=== PATIENT | male | born 1930 | race Caucasian/White ===

== ENCOUNTER → 2016-03-25 | Outpatient (CLI) | payer MEDICARE ==
[~2016-03-25] MED LIST: 8 HOUR PAIN RE650 M1 PO; ADVAIR DISKUS1 DS2 IH; ALLER-FLO15.8 ML NS; AQUAPHOR BABY HEA41% TOP; ASPIRIN E.C. 8181 MG PO; AVEENO BATH1 EACH TP; BENADRYL ALLERG25 M2 PO; CEFDINIR300 MG PO; CELEXA 20MG20 MG/TA1 PO; CELEXA10 MG PO; CEPHALEXIN500 M1 PO; CERAVE453 GM TP; CETIRIZINE5 MG PO; CIPRO250 M1 PO; CLOBETASOL EMOL50 GM TOP; COLACE100 M1 PO; DULCOLAX10 M1 RC; FLEET ENEM1 BOT/133 RC; GLIPIZIDE XL2.5 MG PO; GLUCOPHAGE; GOOD NEIGH1200 MG/15 PO; GOOD NEIGHBOR P20 MG PO; IPRATROPIUM BROM3 M1 IH; LASIX40 M1 PO; METRONIDAZOLE500 M1 PO; MIRALAX17 GM PO; MOMETASONE0.05 MG/Ac NS; NEURONTIN300 M1 PO; NORCO 325 MG-51 TA1 PO; OXY NAS; PEG 335017 GM/Dose PO; PREPARATION H 01 OIN TP; ROCEPHIN VIA1 G/VIAL; TESSALON PERLE100 M1 PO; TRIAMCINOLONE A15 G1 TP; ZITHROMAX500 M2 PO; ZYRTEC ALLERGY10 MG PO
== END ==
LOC: LAB 05:10
DX: D64.9 Anemia, unspecified (principal); E11.9 Type 2 diabetes mellitus without complications; I10 Essential (primary) hypertension

== ENCOUNTER → 2016-03-30 | Outpatient (CLI) | payer MEDICARE | LOC: LAB 15:12 | DX: N39.0 Urinary tract infection, site not specified (principal) ==

== ENCOUNTER → 2016-04-17 | Outpatient (CLI) | payer MEDICARE | LOC: LAB 06:15 | DX: E11.9 Type 2 diabetes mellitus without complications (principal); I10 Essential (primary) hypertension ==

== ENCOUNTER → 2016-07-16 | Outpatient (CLI) | payer MEDICARE ==
[2015-12-15 12:53] VITALS: BP 134/80
== END ==
LOC: LAB 05:25
DX: E11.9 Type 2 diabetes mellitus without complications (principal)

== ENCOUNTER → 2016-09-22 | Outpatient (CLI) | payer MEDICARE ==
[2015-12-15 12:53] VITALS: BP 134/80
== END ==
LOC: LAB 06:20
DX: E11.9 Type 2 diabetes mellitus without complications (principal)

== ENCOUNTER 2016-10-05 14:48 | Emergency (ER) | payer MEDICARE, OTHER ==
[~2016-10-05 14:48] MED LIST changes: -ALLER-FLO15.8 ML NS; -AQUAPHOR BABY HEA41% TOP; -AVEENO BATH1 EACH TP; -CEFDINIR300 MG PO; -CELEXA 20MG20 MG/TA1 PO; -CIPRO250 M1 PO; -CLOBETASOL EMOL50 GM TOP; -IPRATROPIUM BROM3 M1 IH; -OXY NAS; -PEG 335017 GM/Dose PO; -ROCEPHIN VIA1 G/VIAL; -TESSALON PERLE100 M1 PO; -ZITHROMAX500 M2 PO
[2016-10-05] MEDS ORDERED: CELEXA 20MG20 MG/TA1 PO (16:31)
[2016-10-05] MEDS ORDERED: ALLER-FLO15.8 ML NS (16:33)
[2016-10-05] MEDS ORDERED: LASIX40 M1 PO (16:34)
[2016-10-05] MEDS ORDERED: MIRALAX17 GM PO (16:35)
[2016-10-05] MEDS ORDERED: NEURONTIN300 M1 PO (16:35)
[2016-10-05] MEDS ORDERED: TESSALON PERLE100 M1 PO (16:36)
[2016-10-05 17:56] VITALS: BP 114/66
[2016-10-05] MEDS ORDERED: CIPRO250 M1 PO (18:44)
== END 2016-10-05 17:35 | disposition home or self-care (01) ==
LOC: ED 14:48
DX: S09.90XA Unspecified injury of head, initial encounter (principal); S70.02XA Contusion of left hip, initial encounter; S40.012A Contusion of left shoulder, initial encounter; S00.83XA Contusion of other part of head, initial encounter; S41.111A Laceration without foreign body of right upper arm, initial encounter; W18.2XXA Fall in (into) shower or empty bathtub, initial encounter; Y92.121 Bathroom in nursing home as the place of occurrence of the external cause; F03.90 Unspecified dementia, unspecified severity, without behavioral disturbance, psychotic disturbance, mood disturbance, and anxiety; N39.0 Urinary tract infection, site not specified
CPT/HCPCS: A4340; J3010

== ENCOUNTER → 2016-10-08 | Outpatient (CLI) | payer MEDICARE, MEDICAID ==
[2016-10-05 17:56] VITALS: BP 114/66
[~2016-10-08] MED LIST changes: +ALLER-FLO15.8 ML NS; +AQUAPHOR BABY HEA41% TOP; +AVEENO BATH1 EACH TP; +CEFDINIR300 MG PO; +CELEXA 20MG20 MG/TA1 PO; +CIPRO250 M1 PO; +CLOBETASOL EMOL50 GM TOP; +IPRATROPIUM BROM3 M1 IH; +OXY NAS; +PEG 335017 GM/Dose PO; +ROCEPHIN VIA1 G/VIAL; +TESSALON PERLE100 M1 PO; +ZITHROMAX500 M2 PO
== END ==
LOC: RAD 09:18
DX: R06.02 Shortness of breath (principal); J18.9 Pneumonia, unspecified organism

== ENCOUNTER → 2016-10-09 | Outpatient (CLI) | payer MEDICARE, OTHER ==
[2016-10-05 17:56] VITALS: BP 114/66
== END ==
LOC: LAB 06:50
DX: J18.9 Pneumonia, unspecified organism (principal); N39.0 Urinary tract infection, site not specified

== ENCOUNTER 2016-10-10 08:56 | Emergency (ER) | payer MEDICARE, OTHER ==
[~2016-10-10] VITALS: Wt 77.4 kg
[~2016-10-10 08:56] MED LIST changes: -AQUAPHOR BABY HEA41% TOP; -AVEENO BATH1 EACH TP; -CEFDINIR300 MG PO; -CLOBETASOL EMOL50 GM TOP; -IPRATROPIUM BROM3 M1 IH; -OXY NAS; -PEG 335017 GM/Dose PO; -ROCEPHIN VIA1 G/VIAL; -ZITHROMAX500 M2 PO
[2016-10-10] MEDS ORDERED: OXY NAS ×2 (12:17→12:18)
[2016-10-10] MEDS ORDERED: AQUAPHOR BABY HEA41% TOP (12:20)
[2016-10-10] MEDS ORDERED: AVEENO BATH1 EACH TP (12:21)
[2016-10-10] MEDS ORDERED: CLOBETASOL EMOL50 GM TOP (12:25)
[2016-10-10] MEDS ORDERED: IPRATROPIUM BROM3 M1 IH (12:26)
[2016-10-10] MEDS ORDERED: MOMETASONE0.05 MG/Ac NS (12:29)
[2016-10-10] MEDS ORDERED: ZITHROMAX500 M2 PO (12:31)
[2016-10-10] MEDS ORDERED: ROCEPHIN VIA1 G/VIAL (12:31)
[2016-10-10] MEDS ORDERED: TESSALON PERLE100 M1 PO (12:31)
[2016-10-10 14:30] VITALS: BP 124/64
== END 2016-10-10 14:46 | disposition other institution (70) ==
LOC: ED 08:56
DX: J18.9 Pneumonia, unspecified organism (principal); S22.41XA Multiple fractures of ribs, right side, initial encounter for closed fracture; R62.7 Adult failure to thrive; R09.02 Hypoxemia; D64.9 Anemia, unspecified; W19.XXXA Unspecified fall, initial encounter; Y92.129 Unspecified place in nursing home as the place of occurrence of the external cause; I25.10 Atherosclerotic heart disease of native coronary artery without angina pectoris; I10 Essential (primary) hypertension; E11.9 Type 2 diabetes mellitus without complications; Z79.84 Long term (current) use of oral hypoglycemic drugs; J44.9 Chronic obstructive pulmonary disease, unspecified; Z86.73 Personal history of transient ischemic attack (TIA), and cerebral infarction without residual deficits; G20 Parkinson's disease; F02.80 Dementia in other diseases classified elsewhere, unspecified severity, without behavioral disturbance, psychotic disturbance, mood disturbance, and anxiety; Z99.81 Dependence on supplemental oxygen; Z66 Do not resuscitate
CPT/HCPCS: A4340; A4354; Q9967

== ENCOUNTER 2016-10-10 14:29 | Inpatient (IN) | payer MEDICARE, MEDICAID ==
[~2016-10-10] VITALS: Ht 172.7 cm; Wt 75.7 kg
[~2016-10-10 14:29] MED LIST changes: +AQUAPHOR BABY HEA41% TOP; +AVEENO BATH1 EACH TP; +CLOBETASOL EMOL50 GM TOP; +IPRATROPIUM BROM3 M1 IH; +OXY NAS; +ROCEPHIN VIA1 G/VIAL; +ZITHROMAX500 M2 PO
[2016-10-10 14:45] VITALS: BP 124/64
[2016-10-10 18:27] VITALS: BP 127/58
[2016-10-10 23:29] VITALS: BP 142/81
[2016-10-11 03:26] VITALS: BP 116/57
[2016-10-11 06:19] VITALS: BP 132/79
[2016-10-11 11:02] VITALS: BP 124/63
[2016-10-11 15:18] VITALS: BP 107/55
[2016-10-11 18:29] VITALS: BP 106/52
[2016-10-11 23:20] VITALS: BP 111/56
[2016-10-12 03:02] VITALS: BP 134/70
[2016-10-12 06:37] VITALS: BP 124/61
[2016-10-12 10:59] VITALS: BP 132/58
[2016-10-12 15:16] VITALS: BP 141/66
[2016-10-12 18:03] VITALS: BP 164/78
[2016-10-12 23:08] VITALS: BP 140/76
[2016-10-13 03:25] VITALS: BP 134/67
[2016-10-13 06:24] VITALS: BP 134/66
[2016-10-13 11:11] VITALS: BP 123/58
[2016-10-13 15:24] VITALS: BP 142/73
[2016-10-13 18:24] VITALS: BP 140/69
[2016-10-13 23:25] VITALS: BP 167/95
[2016-10-14 02:52] VITALS: BP 143/76
[2016-10-14 06:46] VITALS: BP 141/75
[2016-10-14 11:21] VITALS: BP 122/59
[2016-10-14 15:00] VITALS: BP 124/58
[2016-10-14 18:23] VITALS: BP 137/74
[2016-10-14 23:15] VITALS: BP 115/68
[2016-10-15 02:42] VITALS: BP 125/58
[2016-10-15 06:28] VITALS: BP 124/61
[2016-10-15] MEDS ORDERED: IPRATROPIUM BROM3 M1 IH (09:05)
[2016-10-15] MEDS ORDERED: PEG 335017 GM/Dose PO (09:07)
[2016-10-15] MEDS ORDERED: CEFDINIR300 MG PO (09:13)
[2016-10-15 10:49] VITALS: BP 162/80
[2016-10-15 11:09] VITALS: BP 162/80
== END 2016-10-15 10:59 | DRG 194 ==
LOC: MED/SURG 14:29
PROVIDERS: ADMIT Physician Assistant
DX: J18.9 Pneumonia, unspecified organism (principal); S22.41XA Multiple fractures of ribs, right side, initial encounter for closed fracture; F03.90 Unspecified dementia, unspecified severity, without behavioral disturbance, psychotic disturbance, mood disturbance, and anxiety; J44.9 Chronic obstructive pulmonary disease, unspecified; K21.9 Gastro-esophageal reflux disease without esophagitis; Z66 Do not resuscitate; R53.81 Other malaise; E11.9 Type 2 diabetes mellitus without complications; I10 Essential (primary) hypertension; R62.7 Adult failure to thrive; R09.02 Hypoxemia; D64.9 Anemia, unspecified; Z86.73 Personal history of transient ischemic attack (TIA), and cerebral infarction without residual deficits
CPT/HCPCS: J0456; J0696; J1885; J7030; J7050

== ENCOUNTER → 2016-10-10 | Outpatient (CLI) | payer MEDICARE ==
[2016-10-05 17:56] VITALS: BP 114/66
== END ==
LOC: LAB 06:30
DX: J18.9 Pneumonia, unspecified organism (principal)

== ENCOUNTER → 2016-11-11 | Outpatient (CLI) | payer MEDICARE ==
[2016-10-15 11:09] VITALS: BP 162/80
[~2016-11-11] MED LIST changes: +CEFDINIR300 MG PO; +PEG 335017 GM/Dose PO
== END ==
LOC: LAB 20:32
DX: J18.9 Pneumonia, unspecified organism (principal)

== ENCOUNTER → 2016-12-10 | Outpatient (CLI) | payer MEDICARE | LOC: RAD 11:10 | DX: J44.9 Chronic obstructive pulmonary disease, unspecified (principal) ==

== ENCOUNTER → 2016-12-24 | Outpatient (CLI) | payer MEDICARE | LOC: LAB 05:55 | DX: E11.9 Type 2 diabetes mellitus without complications (principal) ==

== ENCOUNTER → 2017-01-15 | Outpatient (CLI) | payer MEDICARE, MEDICAID ==
[2017-01-15 06:23] LABS: HEMOGLOBIN 13.5 g/dL (13.5-18.0); MEAN PLATELET VOLUME 9.7 fl (7.4-10.4); RED BLOOD COUNT 4.63 M/mm3 (4.20-5.60); RED CELL DISTRIBUTION WIDTH 14.2 % (11.5-14.5); WHITE BLOOD COUNT 9.8 K/mm3 (4.8-10.8)
[2017-01-15 06:24] LABS: ALBUMIN 3.3 g/dL (3.5-5.0); BUN/CREATININE RATIO 18.8 (6.0-26.0); CALCIUM 8.9 mg/dL (8.4-10.2); POTASSIUM 4.4 mmol/L (3.6-5.0); TOTAL BILIRUBIN 0.6 mg/dL (0.2-1.3); TOTAL PROTEIN 6.5 g/dL (6.3-8.2)
== END ==
LOC: LAB 05:53
PROVIDERS: Family Medicine
DX: E11.9 Type 2 diabetes mellitus without complications (principal)

== ENCOUNTER 2017-03-17 17:07 | Emergency (ER) | payer MEDICARE, MEDICAID ==
[~2017-03-17] VITALS: Wt 70.1 kg
[2017-03-17] MEDS ORDERED: ALBUTEROL1.25 MG/3 IH (17:42)
[2017-03-17] MEDS ORDERED: ALLEGRA ALLERG180 MG PO (17:43)
[2017-03-17] MEDS ORDERED: AQUAPHOR BABY HEA41% TP (17:45)
[2017-03-17] MEDS ORDERED: BENADRYL EXTRA STR2% TP (17:46)
[2017-03-17] MEDS ORDERED: CLOBETASOL OINT TOP (17:47)
[2017-03-17] MEDS ORDERED: IPRATROPIUM BROM3 M1 IH (17:49)
[2017-03-17] MEDS ORDERED: ELIDEL30 GM TP (17:49)
[2017-03-17] MEDS ORDERED: HEARTBURN RELIE10 MG PO (17:50)
[2017-03-17] MEDS ORDERED: FLEET ENEM1 BOT/133 RC (17:51)
[2017-03-17] MEDS ORDERED: FLUTICASONE P15.8 ML NS (17:52)
[2017-03-17] MEDS ORDERED: MUCINEX DM 60 M1 TER PO (17:54)
[2017-03-17] MEDS ORDERED: POTASS CHL20 MEQ/15 PO (17:57)
[2017-03-17] MEDS ORDERED: AQUAPHOR HEALING41% TP (18:00)
[2017-03-17 18:25] LABS: ALBUMIN 3.8 g/dL (3.5-5.0); BUN/CREATININE RATIO 18.4 (6.0-26.0); CALCIUM 9.1 mg/dL (8.4-10.2); POTASSIUM 4.5 mmol/L (3.6-5.0); TOTAL BILIRUBIN 0.5 mg/dL (0.2-1.3); TOTAL PROTEIN 6.8 g/dL (6.3-8.2)
[2017-03-17 18:28] LABS: HEMATOCRIT 39.3 % (42.0-52.0); HEMOGLOBIN 12.9 g/dL (13.5-18.0); MEAN CELL VOLUME 88 fl (78-100); MEAN CORPUSCULAR HEMOGLOBIN 29 pg (27-31); MEAN CORPUSCULAR HGB CONC 33 g/dL (33-37); MEAN PLATELET VOLUME 9.5 fl (7.4-10.4); PLATELET COUNT 301 K/mm3 (130-400); RED BLOOD COUNT 4.47 M/mm3 (4.20-5.60); RED CELL DISTRIBUTION WIDTH 14.8 % (11.5-14.5)
[2017-03-17 18:43] LABS: LYMPHOCYTE 10 % (20-51); MONOCYTE 7 % (3-10); NEUTROPHILS 75 % (42-75)
[2017-03-17 18:48] LABS: D-DIMER 2.06 mg/L FEU (0.15-0.50)
[2017-03-17] MEDS ORDERED: BACTRIM DS TAB1 EACH PO (19:33)
[2017-03-17 19:52] VITALS: BP 142/71
== END 2017-03-17 19:53 ==
LOC: ED 17:07
PROVIDERS: Physician Assistant
DX: L03.115 Cellulitis of right lower limb (principal); E11.9 Type 2 diabetes mellitus without complications; I25.10 Atherosclerotic heart disease of native coronary artery without angina pectoris; J44.9 Chronic obstructive pulmonary disease, unspecified; Z99.81 Dependence on supplemental oxygen; Z86.73 Personal history of transient ischemic attack (TIA), and cerebral infarction without residual deficits; F03.90 Unspecified dementia, unspecified severity, without behavioral disturbance, psychotic disturbance, mood disturbance, and anxiety; Z95.0 Presence of cardiac pacemaker; R21 Rash and other nonspecific skin eruption; S40.812A Abrasion of left upper arm, initial encounter; S40.811A Abrasion of right upper arm, initial encounter; X58.XXXA Exposure to other specified factors, initial encounter; Y92.129 Unspecified place in nursing home as the place of occurrence of the external cause; R79.89 Other specified abnormal findings of blood chemistry; Z79.82 Long term (current) use of aspirin; Z79.84 Long term (current) use of oral hypoglycemic drugs
CPT/HCPCS: J1650

== ENCOUNTER → 2017-03-18 | Outpatient (CLI) | payer MEDICARE, MEDICAID ==
[2017-03-17 19:52] VITALS: BP 142/71
[~2017-03-18] MED LIST changes: +ALBUTEROL1.25 MG/3 IH; +ALLEGRA ALLERG180 MG PO; +AQUAPHOR BABY HEA41% TP; +AQUAPHOR HEALING41% TP; +BACTRIM DS TAB1 EACH PO; +BENADRYL EXTRA STR2% TP; +CLOBETASOL OINT TOP; +ELIDEL30 GM TP; +FLUTICASONE P15.8 ML NS; +HEARTBURN RELIE10 MG PO; +MUCINEX DM 60 M1 TER PO; +POTASS CHL20 MEQ/15 PO
== END ==
LOC: LAB 07:09 → RAD 07:09
DX: M79.89 Other specified soft tissue disorders (principal); R79.89 Other specified abnormal findings of blood chemistry

== ENCOUNTER → 2017-03-19 | Outpatient (CLI) | payer MEDICARE, MEDICAID ==
[2017-03-17 19:52] VITALS: BP 142/71
[2017-03-19 16:06] LABS: HEMATOCRIT 35.6 % (42.0-52.0); HEMOGLOBIN 11.5 g/dL (13.5-18.0); MEAN CELL VOLUME 89 fl (78-100); MEAN CORPUSCULAR HEMOGLOBIN 29 pg (27-31); MEAN CORPUSCULAR HGB CONC 32 g/dL (33-37); MEAN PLATELET VOLUME 9.6 fl (7.4-10.4); PLATELET COUNT 266 K/mm3 (130-400); RED BLOOD COUNT 4.01 M/mm3 (4.20-5.60); RED CELL DISTRIBUTION WIDTH 14.7 % (11.5-14.5); WHITE BLOOD COUNT 9.6 K/mm3 (4.8-10.8)
[2017-03-19 17:20] LABS: ERYTHROCYTE SEDIMENTATION RATE 21 mm/hr (0-20)
[2017-03-19 19:00] LABS: LYMPHOCYTE 9 % (20-51); MONOCYTE 10 % (3-10); NEUTROPHILS 70 % (42-75)
== END ==
LOC: LAB 15:45
PROVIDERS: Family Medicine
DX: S81.801A Unspecified open wound, right lower leg, initial encounter (principal)

== ENCOUNTER → 2017-03-20 | Outpatient (CLI) | payer MEDICARE, MEDICAID ==
[2017-03-17 19:52] VITALS: BP 142/71
[2017-03-20 06:59] LABS: BUN/CREATININE RATIO 21.4 (6.0-26.0); CALCIUM 8.9 mg/dL (8.4-10.2); POTASSIUM 4.7 mmol/L (3.6-5.0)
== END ==
LOC: LAB 06:15
PROVIDERS: Internal Medicine Interventional Cardiology
DX: Z79.899 Other long term (current) drug therapy (principal)

== ENCOUNTER → 2017-03-26 | Outpatient (CLI) | payer MEDICARE, MEDICAID ==
[2017-03-17 19:52] VITALS: BP 142/71
[2017-03-26 15:37] LABS: HEMATOCRIT 34.5 % (42.0-52.0); HEMOGLOBIN 11.2 g/dL (13.5-18.0); MEAN CELL VOLUME 90 fl (78-100); MEAN CORPUSCULAR HEMOGLOBIN 29 pg (27-31); MEAN CORPUSCULAR HGB CONC 33 g/dL (33-37); MEAN PLATELET VOLUME 9.4 fl (7.4-10.4); PLATELET COUNT 313 K/mm3 (130-400); RED BLOOD COUNT 3.85 M/mm3 (4.20-5.60); RED CELL DISTRIBUTION WIDTH 14.9 % (11.5-14.5); WHITE BLOOD COUNT 10.6 K/mm3 (4.8-10.8)
[2017-03-26 16:49] LABS: LYMPHOCYTE 13 % (20-51); MONOCYTE 5 % (3-10); NEUTROPHILS 67 % (42-75)
[2017-03-26 17:24] LABS: ERYTHROCYTE SEDIMENTATION RATE 15 mm/hr (0-20)
== END ==
LOC: LAB 15:16
PROVIDERS: Family Medicine
DX: I87.2 Venous insufficiency (chronic) (peripheral) (principal); L01.00 Impetigo, unspecified

== ENCOUNTER → 2017-04-17 | Outpatient (CLI) | payer MEDICARE, MEDICAID ==
[2017-04-17 07:40] LABS: HEMATOCRIT 37.5 % (42.0-52.0); HEMOGLOBIN 11.9 g/dL (13.5-18.0); MEAN PLATELET VOLUME 10.9 fl (7.4-10.4); RED BLOOD COUNT 4.21 M/mm3 (4.20-5.60); WHITE BLOOD COUNT 8.8 K/mm3 (4.8-10.8)
[2017-04-17 07:52] LABS: ALBUMIN 3.2 g/dL (3.5-5.0); BUN/CREATININE RATIO 14.9 (6.0-26.0); CALCIUM 8.4 mg/dL (8.4-10.2); POTASSIUM 4.1 mmol/L (3.6-5.0); TOTAL BILIRUBIN 0.4 mg/dL (0.2-1.3); TOTAL PROTEIN 6.2 g/dL (6.3-8.2)
== END ==
LOC: LAB 06:30
PROVIDERS: Family Medicine
DX: E11.9 Type 2 diabetes mellitus without complications (principal); R53.1 Weakness; J44.9 Chronic obstructive pulmonary disease, unspecified

== ENCOUNTER → 2017-05-05 | Outpatient (CLI) | payer MEDICARE, MEDICAID | LOC: LAB 05:58 | DX: R21 Rash and other nonspecific skin eruption (principal); L29.9 Pruritus, unspecified ==

== ENCOUNTER 2017-05-28 09:08 | Emergency (ER) | payer MEDICARE, MEDICAID ==
[~2017-05-28] VITALS: Wt 67.3 kg
[2017-05-28 10:57] LABS: HEMATOCRIT 32.6 % (42.0-52.0); HEMOGLOBIN 10.3 g/dL (13.5-18.0); MEAN CELL VOLUME 90 fl (78-100); MEAN CORPUSCULAR HEMOGLOBIN 28 pg (27-31); MEAN CORPUSCULAR HGB CONC 32 g/dL (33-37); MEAN PLATELET VOLUME 8.9 fl (7.4-10.4); PLATELET COUNT 270 K/mm3 (130-400); RED BLOOD COUNT 3.64 M/mm3 (4.20-5.60); RED CELL DISTRIBUTION WIDTH 15.3 % (11.5-14.5); WHITE BLOOD COUNT 19.4 K/mm3 (4.8-10.8)
[2017-05-28 11:08] LABS: BUN/CREATININE RATIO 29.1 (6.0-26.0); CALCIUM 8.5 mg/dL (8.4-10.2); TOTAL BILIRUBIN 0.4 mg/dL (0.2-1.3); TOTAL PROTEIN 6.4 g/dL (6.3-8.2)
[2017-05-28 11:09] LABS: URINE APPEARANCE CLOUDY; URINE BILIRUBIN NEGATIVE (NEGATIVE); URINE COLOR YELLOW; URINE GLUCOSE NEGATIVE (NEGATIVE); URINE KETONE NEGATIVE (NEGATIVE); URINE NITRATE POSITIVE (NEGATIVE); URINE PROTEIN(semi-quant) 1+ mg/dL (NEGATIVE); URINE UROBILINOGEN NORMAL (NORMAL)
[2017-05-28 11:10] LABS: URINE BLOOD NEGATIVE (NEGATIVE); URINE LEUKOCYTE ESTERASE 2+ (NEGATIVE); URINE WBC 16-30 /hpf (0-3)
[2017-05-28 11:22] LABS: BAND 1 % (0-10); LYMPHOCYTE 4 % (20-51); MONOCYTE 5 % (3-10); NEUTROPHILS 88 % (42-75); OVALOCYTES 1+
[2017-05-28 16:00] VITALS: BP 110/57
[2017-05-28] MEDS ORDERED: MIRALAX17 GM PO (20:33)
== END 2017-05-28 16:03 | disposition home or self-care (01) ==
LOC: ED 09:08
PROVIDERS: Physician Assistant
DX: N39.0 Urinary tract infection, site not specified (principal); J44.9 Chronic obstructive pulmonary disease, unspecified; F03.90 Unspecified dementia, unspecified severity, without behavioral disturbance, psychotic disturbance, mood disturbance, and anxiety; I25.10 Atherosclerotic heart disease of native coronary artery without angina pectoris; E11.9 Type 2 diabetes mellitus without complications; Z99.81 Dependence on supplemental oxygen; G20 Parkinson's disease; Z91.81 History of falling
CPT/HCPCS: A4354; J0696

== ENCOUNTER → 2017-06-01 | Outpatient (CLI) | payer MEDICARE, MEDICAID ==
[2017-05-28 16:00] VITALS: BP 110/57
== END ==
LOC: RAD 11:02
DX: M25.531 Pain in right wrist (principal); W19.XXXA Unspecified fall, initial encounter

== ENCOUNTER → 2017-06-03 | Outpatient (CLI) | payer MEDICARE, MEDICAID ==
[2017-05-28 16:00] VITALS: BP 110/57
[2017-06-03 17:43] LABS: URINE APPEARANCE CLEAR; URINE BILIRUBIN NEGATIVE (NEGATIVE); URINE COLOR YELLOW; URINE GLUCOSE NEGATIVE (NEGATIVE); URINE KETONE NEGATIVE (NEGATIVE); URINE NITRATE NEGATIVE (NEGATIVE); URINE PROTEIN(semi-quant) NEGATIVE (NEGATIVE); URINE UROBILINOGEN NORMAL (NORMAL)
[2017-06-03 17:44] LABS: URINE BLOOD TRACE (NEGATIVE); URINE LEUKOCYTE ESTERASE NEGATIVE (NEGATIVE); URINE WBC 0-1 /hpf (0-3)
== END ==
LOC: LAB 15:45
PROVIDERS: Family Medicine
DX: N39.0 Urinary tract infection, site not specified (principal)

== ENCOUNTER → 2017-07-16 | Outpatient (CLI) | payer MEDICARE, MEDICAID ==
[2017-07-16 07:40] LABS: HEMATOCRIT 36.6 % (42.0-52.0); HEMOGLOBIN 11.5 g/dL (13.5-18.0); MEAN PLATELET VOLUME 10.2 fl (7.4-10.4); RED BLOOD COUNT 4.24 M/mm3 (4.20-5.60); RED CELL DISTRIBUTION WIDTH 14.9 % (11.5-14.5); WHITE BLOOD COUNT 10.3 K/mm3 (4.8-10.8)
[2017-07-16 07:49] LABS: ALBUMIN 3.1 g/dL (3.5-5.0); BUN/CREATININE RATIO 25.8 (6.0-26.0); CALCIUM 8.7 mg/dL (8.4-10.2); POTASSIUM 4.4 mmol/L (3.6-5.0); TOTAL BILIRUBIN 0.3 mg/dL (0.2-1.3); TOTAL PROTEIN 6.3 g/dL (6.3-8.2)
== END ==
LOC: LAB 06:15
PROVIDERS: Family Medicine
DX: E11.9 Type 2 diabetes mellitus without complications (principal)

== ENCOUNTER → 2017-09-17 | Outpatient (CLI) | payer MEDICARE, MEDICAID ==
[2017-09-17 14:25] LABS: HEMATOCRIT 39.3 % (42.0-52.0); HEMOGLOBIN 12.5 g/dL (13.5-18.0); MEAN CELL VOLUME 85 fl (78-100); MEAN CORPUSCULAR HEMOGLOBIN 27 pg (27-31); MEAN CORPUSCULAR HGB CONC 32 g/dL (33-37); MEAN PLATELET VOLUME 10.2 fl (7.4-10.4); PLATELET COUNT 252 K/mm3 (130-400); RED CELL DISTRIBUTION WIDTH 15.5 % (11.5-14.5); WHITE BLOOD COUNT 9.4 K/mm3 (4.8-10.8)
[2017-09-17 14:38] LABS: BUN/CREATININE RATIO 25.7 (6.0-26.0); CALCIUM 8.6 mg/dL (8.4-10.2); POTASSIUM 4.6 mmol/L (3.6-5.0)
[2017-09-17 15:16] LABS: LYMPHOCYTE 11 % (20-51); MONOCYTE 10 % (3-10); NEUTROPHILS 65 % (42-75)
== END ==
LOC: LAB 13:23
PROVIDERS: Family Medicine
DX: J44.9 Chronic obstructive pulmonary disease, unspecified (principal); R13.10 Dysphagia, unspecified

== ENCOUNTER → 2017-09-18 | Outpatient (CLI) | payer MEDICARE, MEDICAID ==
[2017-09-18 07:20] LABS: URINE APPEARANCE CLEAR; URINE COLOR YELLOW
[2017-09-18 07:21] LABS: URINE BILIRUBIN NEGATIVE (NEGATIVE); URINE BLOOD NEGATIVE (NEGATIVE); URINE GLUCOSE 50 mg/dL mg/dL (NEGATIVE); URINE KETONE NEGATIVE (NEGATIVE); URINE LEUKOCYTE ESTERASE NEGATIVE (NEGATIVE); URINE MUCUS PRESENT (NOT PRESENT); URINE NITRATE NEGATIVE (NEGATIVE); URINE PROTEIN(semi-quant) NEGATIVE (NEGATIVE); URINE UROBILINOGEN NORMAL (NORMAL)
== END ==
LOC: LAB 06:10
PROVIDERS: Family Medicine
DX: J44.9 Chronic obstructive pulmonary disease, unspecified (principal)

== ENCOUNTER → 2017-10-12 | Outpatient (CLI) | payer MEDICARE, MEDICAID | LOC: LAB 11:40 | DX: E11.9 Type 2 diabetes mellitus without complications (principal) ==

== ENCOUNTER → 2017-11-15 | Outpatient (CLI) | payer MEDICARE, MEDICAID, OTHER ==
[2017-11-15 08:43] LABS: PH-URINE 7.5 (5.0 - 8.0); URINE APPEARANCE CLOUDY; URINE BILIRUBIN NEGATIVE (NEGATIVE); URINE BLOOD 250 ery/uL (NEGATIVE); URINE COLOR YELLOW; URINE GLUCOSE NEGATIVE (NEGATIVE); URINE KETONE NEGATIVE (NEGATIVE); URINE LEUKOCYTE ESTERASE 2+ (NEGATIVE); URINE NITRATE NEGATIVE (NEGATIVE); URINE PROTEIN(semi-quant) 2+ mg/dL (NEGATIVE); URINE UROBILINOGEN NORMAL (NORMAL); URINE WBC >50 /hpf (0-3)
== END ==
LOC: LAB 08:14
PROVIDERS: Family Medicine
DX: R82.99 Other abnormal findings in urine (principal)